=== PATIENT | male | born 1955 | race Caucasian/White ===

== ENCOUNTER 2018-07-03 22:03 | Inpatient (IN) | payer BC ==
[~2018-07-03] VITALS: Ht 168.9 cm; Wt 141.2 kg
[~2018-07-03 22:03] MED LIST: ALLER-TEC10 MG PO; ALLERGY EYE DRO10 ML BOTH EYES; ARTHRITIS PAIN650 M1 PO; BENADRYL25 MG PO; CENTRUM SILVER1 EAC3 PO; COUMADIN4 MG PO; COZAAR25 MG PO; DIGESTIVE PROB1 EACH PO; FEOSOL325 MG PO; FISH OIL 1,2001 EAC4 PO; FLONASE16 G1 BOTH NARES; GLUCOSAMINE CH1 EAC2 PO; IRON325 M1 PO; LO-DOSE ASPIRIN81 M1 PO; NAPROSYN500 MG PO; OMEGA 3 1,0001 EACH PO; OXYCODONE HCL5 MG PO; OXYCONTIN10 MG PO; PERCOCET 5/31 TABLET PO; SENNA-TIME S T1 EACH PO; TYLENOL REGULA325 MG PO; ULTRAM50 MG PO; VITAMIN B-6100 MG PO; ZADITOR 0.100 DROP/5 BOTH EYES; ZESTRIL10 MG PO
[2018-07-04] VITALS: BP 153/84
[2018-07-04 10:40] VITALS: BP 134/85
[2018-07-04 10:41] VITALS: BP 134/85
[2018-07-04 16:46] VITALS: BP 164/83
[2018-07-04 20:04] VITALS: BP 139/73
[2018-07-05] VITALS: BP 153/84
[2018-07-05 04:15] VITALS: BP 135/78
[2018-07-05 06:11] LABS: HEMOGLOBIN 13.4 G/DL (12.5-16.6)
[2018-07-05 06:34] LABS: CHLORIDE 101 MEQ/L (99-109); CREATININE 0.8 MG/DL (0.6-1.3); GFR ESTIMATE (CALCULATED) > 59 mL/min/ (58.99-99999); GLUCOSE 140 mg/dL (70-99); POTASSIUM 4.3 MEQ/L (3.7-5.4); SODIUM 137 MEQ/L (136-147); UREA NITROGEN (BUN) 18 mg/dL (9-23)
[2018-07-05 08:21] VITALS: BP 170/77
[2018-07-05 12:00] VITALS: BP 141/67
[2018-07-05 15:57] VITALS: BP 142/69
[2018-07-05 20:20] VITALS: BP 130/62
[2018-07-06 00:12] VITALS: BP 159/76
[2018-07-06 04:20] VITALS: BP 150/76
[2018-07-06 06:34] LABS: HEMATOCRIT 36.3 % (38.0-50.0); HEMOGLOBIN 11.8 G/DL (12.5-16.6); MCV 95.5 FL (86-99)
[2018-07-06 08:25] VITALS: BP 136/71
[2018-07-06] MEDS ORDERED: BENADRYL25 MG PO (09:07)
[2018-07-06] MEDS ORDERED: OXYCODONE HCL5 MG PO (09:10)
[2018-07-06] MEDS ORDERED: ELIQUIS2.5 MG PO (09:10)
[2018-07-06] MEDS ORDERED: Salonpas 4% Patch TD (09:10)
[2018-07-06] MEDS ORDERED: BISACODYL5 MG PO (09:10)
[2018-07-06] MEDS ORDERED: CELECOXIB200 MG PO (09:10)
[2018-07-06 13:29] VITALS: BP 130/60
[2018-07-06 15:58] VITALS: BP 146/65
[2018-07-06 19:40] VITALS: BP 133/63
[2018-07-07 00:02] VITALS: BP 147/74
[2018-07-07 03:30] VITALS: BP 140/67
[2018-07-07 08:05] VITALS: BP 153/65
[2018-07-07 11:34] VITALS: BP 135/71
== END 2018-07-07 18:03 | DRG 470 ==
LOC: ENRESERV 22:03 → 2SOUTH 07-04 08:37 → 3WEST 07-04 09:51 → 2SOUTH 07-04 09:51 → 3WEST 07-04 16:06 → 2SOUTH 07-04 20:03 → 3WEST 07-07 18:03
PROVIDERS: Orthopaedic Surgery
PROC: 0SRC0J9 Replacement of Right Knee Joint with Synthetic Substitute, Cemented, Open Approach (ICD-10-PCS; principal; 2018-07-04)
DX: M17.11 Unilateral primary osteoarthritis, right knee (principal); G89.29 Other chronic pain; Z68.42 Body mass index [BMI] 45.0-49.9, adult; E66.9 Obesity, unspecified; Z96.652 Presence of left artificial knee joint
CPT/HCPCS: 71045; 80048; 85014; 85018; C1713; J0690; J1170; J1885; J2250; J2795; J3010; J7050